=== PATIENT | female | born 1950 | race Caucasian/White ===

== ENCOUNTER → 2017-06-19 | Outpatient (CLI) | payer OTHER ==
--- NOTE | 2017-06-19 13:05 | EXERCISE STRESS ECHO ---
*NOTICE TO RECEIVING LIBERTARIAN AGENCY This information is strictly Confidential and protected under [place] law. [place] law prohibits you from making any further disclosure of this information unless further disclosure is expressly permitted by the written consent of the person to whom it pertains or is authorized by law. A general authorization for the release of medical or other information is not sufficient for this purpose. Hospital accepts no responsibility if the information is made available to any other person, INCLUDING THE PATIENT. Interpretation Summary * Name: LISA MENA Study Date: 06/19/2017 09:35 AM BP: 107/81 mmHg * Patient Location: [facility] HR: 77 * : 1950 (M/d/yyyy) Gender: Female Height: 67 in * Age: 67 yrs Ethnicity: CA Weight: 148 lb * Ordering Physician: Geneva Hernandez * Referring Physician: Geneva Hernandez D.O. * Performed By: Ximena Shelley RCS * * Reason For Study: Palpitations * BSA: 1.8 m2 * -- Conclusions -- * Left ventricular systolic function is normal. * Normal diastolic function * Right ventricular systolic pressure is normal. * Normal exercise echocardiogram without evidence of inducible ischemia Procedure Details * ECHOEX, CPT #[id number] * ECHO COLOR FLOW, CPT #[id number] * ECHO DOPPLER, CPT #[id number] Left Ventricular Findings with Stress * Normal exercise echocardiogram without evidence of inducible ischemia Left Ventricle * The left ventricle is normal in size. * There is normal left ventricular wall thickness. * Left ventricular systolic function is normal. * Normal diastolic function * The left ventricular wall motion is normal at rest. Right Ventricle * The right ventricle is normal in size and function. Atria * The left atrial size is normal. * Right atrial size is normal. Mitral Valve * The mitral valve anatomy is normal. * Significant mitral regurgitation is absent. Tricuspid Valve * The tricuspid valve anatomy is normal. * There is mild tricuspid regurgitation. * Right ventricular systolic pressure is normal. Aortic Valve * The aortic valve is normal in structure and function. * The aortic valve is trileaflet. * No hemodynamically significant valvular aortic stenosis. * There is no significant aortic regurgitation. Great Vessels * The aortic root is normal size. Pericardium * There is no pericardial effusion. Stress Parameters * Normal baseline electrocardiogram. * Stress ECG: No ST changes. No arrhythmias. * Rest heart rate was '77' BPM. * Rest blood pressure was '107/81' * Maximum heart rate achieved was 142 bpm. * Maximum heart rate was 92 % of maximum age-predicted heart rate. * Maximum blood pressure was '155/100' * Total exercise time was '6:00' * Maximum exercise MET level achieved was '7.0' METS * Maximum treadmill speed was '2.5' miles per hour. * Maximum treadmill elevation was '12'% grade. * Exercise was terminated due to 'fatigue after achieving target heart rate' * Normal blood pressure response to exercise. Left Ventricular Findings with Stress * Baseline EKG was normal There were no significant ST or T-wave changes during stress or recovery There were no arrhythmias noted during testing Baseline echocardiographic images were normal There was normal augmentation of all segments without inducible wall motion abnormalities during stress There is normal heart rate and blood pressure response to exercise Quezada treadmill score: 6 (low risk) MMode 2D Measurements and Calculations IVSd 0.96 cm IVSs 1.2 cm LVIDd 3.9 cm LVIDs 2.3 cm LVPWd 0.97 cm LVPWs 1.2 cm IVS/LVPW 0.98 FS 41.6 % EDV(Teich) 64.6 ml ESV(Teich) 17.3 ml EF(Teich) 73.2 % EDV(cubed) 57.9 ml ESV(cubed) 11.5 ml EF(cubed) 80.1 % % IVS thick 29.6 % % LVPW thick 21.6 % LV mass(C)d 114.6 grams LV mass(C)dI 64.4 grams/m\S\2 LV mass(C)s 76.4 grams LV mass(C)sI 43.0 grams/m\S\2 SV(Teich) 47.3 ml SI(Teich) 26.6 ml/m\S\2 SV(cubed) 46.3 ml SI(cubed) 26.0 ml/m\S\2 Ao root diam 3.3 cm Ao root area 8.6 cm\S\2 ACS 1.8 cm LA dimension 2.9 cm asc Aorta Diam 2.9 cm LA/Ao 0.86 EDV(MOD-sp4) 60.0 ml ESV(MOD-sp4) 29.0 ml EF(MOD-sp4) 51.7 % EDV(MOD-sp2) 60.0 ml ESV(MOD-sp2) 22.0 ml EF(MOD-sp2) 63.3 % SV(MOD-sp4) 31.0 ml SI(MOD-sp4) 17.4 ml/m\S\2 SV(MOD-sp2) 38.0 ml SI(MOD-sp2) 21.4 ml/m\S\2 Doppler Measurements and Calculations MV E max hieu 67.2 cm/sec MV A max hieu 58.9 cm/sec MV E/A 1.1 MV P1/2t max hieu 77.8 cm/sec MV P1/2t 65.3 msec MVA(P1/2t) 3.4 cm\S\2 MV dec slope 348.6 cm/sec\S\2 MV dec time 0.19 sec Ao V2 max 149.3 cm/sec Ao max PG 8.9 mmHg Ao max PG (full) 1.6 mmHg LV V1 max PG 7.3 mmHg LV V1 max 134.9 cm/sec PA V2 max 91.0 cm/sec PA max PG 3.3 mmHg TR max hieu 264.7 cm/sec
== END | disposition home or self-care (01) ==
LOC: EDSTATUS 06-12 11:00 → C.CPL 09:29
PROVIDERS: ATTEND Family Medicine
DX: R00.2 Palpitations (principal)